=== PATIENT | female | born 1955 | race Caucasian/White ===

== ENCOUNTER 2021-06-19 17:35 | Emergency (ER) | payer MEDICARE, BC ==
[~2021-06-19] VITALS: Ht 167.7 cm; Wt 55.6 kg
--- NOTE | 2021-06-19 18:14 | ED General ---
General Chief Complaint: Trauma-Non Activation Stated Complaint: FALL; HEAD INJ Nursing Triage Note: Patient reports she was at the [employer] and accidentally stepped off a curb, hitting the left side of her head on a metal pole. She states she did not fall to the ground, states she was stunned for a moment but did not lose consciousness. She reports a headache and neck pain on the sides of her neck. History of Present Illness Date Seen by Provider: Jun 19, 2021 Time Seen by Provider: 18:11 Initial Comments Patient presenting to the emergency department for evaluation of head and neck pain status post injury when she excellently stepped off a curb and hit her left side of her parietal region against a metal pole. She does not think that she lost consciousness but she says she saw stars and contorted her head and has pain in her neck as well. She denies any other areas of pain including no chest abdomen back or extremity pain had no vision changes weakness numbness or ting ling. She denies taking blood thinners on a regular basis. She is in no acute distress with normal vital signs. Allergies and Home Medications Allergies Coded Allergies: Benzodiazepines (Verified Allergy, Unknown, 06/19/21) Quinolones (Verified Allergy, Unknown, 06/19/21) Patient Home Medication List Home Medication List Reviewed: Yes Review of Systems Review of Systems Constitutional: no symptoms reported EENTM: no symptoms reported Respiratory: no symptoms reported Cardiovascular: no symptoms reported Gastrointestinal: no symptoms reported Musculoskeletal: neck pain Skin: no symptoms reported Psychiatric/Neurological: Headache All Other Systems Reviewed Negative Unless Noted: Yes Physical Exam Vital Signs Vital Signs - First Documented 06/19/21 17:38 Temp 36.4 Pulse 79 Resp 16 B/P (MAP) 132/81 (98) Pulse Ox 99 O2 Delivery Room Air Capillary Refill : Less Than 3 Seconds Height, Weight, BMI Height: '" Weight: lbs. oz. kg; 19.00 BMI Method: General Appearance: No Apparent Distress, WD/WN HEENT: PERRL/EOMI Neck: Supple, Tender Lateral, Tender Midline Respiratory: No Respiratory Distress Cardiovascular: Regular Rate, Rhythm Gastrointestinal: Non Tender, Soft Back: No Vertebral Tenderness Extremity: Normal Capillary Refill Neurologic/Psychiatric: Alert, Oriented x3, No Motor/Sensory Deficits Skin: Warm/Dry Progress/Results/Core Measures Suspected Sepsis SIRS Temperature: Pulse: 79 Respiratory Rate: 16 Blood Pressure 132 /81 Mean: 98 Results/Orders My Orders Orders - GEOVANNY LEMA DO Ct Head/Cervical Spine Wo (06/19/21 ) Vital Signs/I&O 06/19/21 17:38 Temp 36.4 Pulse 79 Resp 16 B/P (MAP) 132/81 (98) Pulse Ox 99 O2 Delivery Room Air Capillary Refill : Less Than 3 Seconds Blood Pressure Mean: 98 Progress Note : Progress Note Patient with likely closed head injury without bleeding as well as cervical sprain but patient is quite concerned about her injury and says she does not want to wake up tomorrow with bleeding internally. After extensive discussion of benefits and risks of CT she wanted to proceed with a CT. she does not want anything for pain at this time. Imaging negative and repeat neurologic exam is normal and unchanged. Patient will be discharged in stable condition told to take tkfg-gpa-sdeabge medications for symptom relief to follow-up with her primary care provider later this week to ensure improvement and come back to the ED sooner with worsening pain neurologic changes or other general concerns. Patient aware and agreeable with plan and verbalized understanding of the above instructions. Departure Impression Primary Impression: CHI (closed head injury) Qualified Codes: S09.90XA - Unspecified injury of head, initial encounter Additional Impression: Acute cervical sprain Qualified Codes: S13.9XXA - Sprain of joints and ligaments of unspecified parts of neck, initial encounter Disposition: 01 HOME, SELF-CARE Condition: Stable Departure-Patient Inst. Referrals: DELTA HOPE MD (PCP/Family) Primary Care Physician Patient Instructions: Closed Head Injury (DC) GEOVANNY LEMA DO Jun 19, 2021 18:14
--- NOTE | 2021-06-19 18:41 | Diagnostic Imaging Report ---
PROCEDURE: CT head and CT cervical spine without contrast. TECHNIQUE: Multiple contiguous axial images were obtained through the brain and cervical spine without the use of intravenous contrast. Sagittal and coronal reformations through the cervical spine were then performed. Auto Exposure Controls were utilized during the CT exam to meet ALARA standards for radiation dose reduction. DATE: June 19, 2021. COMPARISON: None. INDICATION: 65-year-old female, hit head. Head and neck pain. FINDINGS: The ventricles and cerebral spinal fluid spaces are of normal size and configuration for the patient's age. There is no mass effect or midline shift. There is no acute intracranial hemorrhage. There is no abnormal extra-axial fluid collection. The visualized portions of the paranasal sinuses, mastoid air cells and middle ears are well aerated. There is no identified facet joint subluxation or dislocation. There are moderate left facet degenerative changes at C2-C3, C3-C4, and C4-C5. There is no asymmetric widening of the cervical disc spaces. There is no prominent prevertebral soft tissue swelling. There is mild disc height loss with posterior disc osteophyte complexes at C5-C6 and C6-C7. There is no identified acute fracture of the cervical spine. The visualized portions of the lung apices are clear. There are bilateral carotid vascular calcifications. IMPRESSION: 1. No identified acute intracranial abnormality. 2. No identified acute abnormality of the cervical spine. 3. Disc and facet degenerative changes of the cervical spine. Dictated by: Dictated on workstation # [id number]
[2021-06-19 19:11] VITALS: BP 128/72
== END 2021-06-19 19:02 | disposition home or self-care (01) ==
LOC: ER FS 17:38
DX: S09.90XA Unspecified injury of head, initial encounter (principal); S13.4XXA Sprain of ligaments of cervical spine, initial encounter; W18.43XA Slipping, tripping and stumbling without falling due to stepping from one level to another, initial encounter; W22.8XXA Striking against or struck by other objects, initial encounter; Y92.512 Supermarket, store or market as the place of occurrence of the external cause
CPT/HCPCS: 70450; 72125

== ENCOUNTER → 2021-09-03 | Outpatient (CLI) | payer MEDICARE ==
[2021-09-03 15:50] LABS: BUN/CREATININE RATIO 19; CALCIUM 9.6 MG/DL (8.5-10.1); CARBON DIOXIDE 23 MMOL/L (21-32); CHLORIDE 106 MMOL/L (98-107); CREATININE SERUM 0.75 MG/DL (0.60-1.30); GFR ESTIMATED 77; GLUCOSE 96 MG/DL (70-105); POTASSIUM 3.9 MMOL/L (3.6-5.0); SODIUM 142 MMOL/L (135-145)
== END ==
LOC: LAB FS 14:42
PROVIDERS: ATTEND Family Medicine
DX: R00.2 Palpitations (principal); R07.9 Chest pain, unspecified
CPT/HCPCS: 36415; 80048; 84443; 84484

== ENCOUNTER → 2021-10-16 | Outpatient (CLI) | payer MEDICARE, BC ==
[2021-10-16 12:47] LABS: HEMATOCRIT 44 % (35-52); HEMOGLOBIN 14.4 g/dL (11.5-16.0); MEAN CORPUSCULAR HEMOGLOBIN 31 pg (25-34); MEAN CORPUSCULAR HGB CONC 33 g/dL (32-36); MEAN CORPUSCULAR VOLUME 96 fL (80-99); MEAN PLATELET VOLUME 9.2 fL (9.0-12.2); PLATELET COUNT 300 10^3/uL (130-400); WHITE BLOOD COUNT 4.8 10^3/uL (4.3-11.0)
[2021-10-16 12:48] LABS: BASOPHILS # (AUTO) 0.1 10^3/uL (0.0-0.1); BASOPHILS % (AUTO) 1 % (0-10); EOSINOPHILS # (AUTO) 0.1 10^3/uL (0.0-0.3); EOSINOPHILS % (AUTO) 3 % (0-10); LYMPHOCYTES # (AUTO) 1.4 X 10^3 (1.0-4.0); LYMPHOCYTES % (AUTO) 29 % (12-44); MONOCYTES # (AUTO) 0.3 X 10^3 (0.0-1.0); MONOCYTES % (AUTO) 7 % (0-12); NEUTROPHILS # (AUTO) 2.9 X 10^3 (1.8-7.8); NEUTROPHILS % (AUTO) 61 % (42-75)
== END ==
LOC: LAB FS 12:07
PROVIDERS: ATTEND Family Medicine
DX: R53.82 Chronic fatigue, unspecified (principal); R79.89 Other specified abnormal findings of blood chemistry
CPT/HCPCS: 36415; 82607; 85025

== ENCOUNTER → 2021-11-09 | Outpatient (CLI) | payer MEDICARE, BC | LOC: FS 16:32 | PROVIDERS: ATTEND Family Medicine | DX: R10.9 Unspecified abdominal pain (principal) | CPT/HCPCS: 87088 ==

== ENCOUNTER → 2021-12-24 | Outpatient (CLI) | payer MEDICARE, BC | LOC: LABNPT 15:29 | PROVIDERS: ATTEND Registered Nurse Emergency | DX: R50.9 Fever, unspecified (principal); Z20.822 Contact with and (suspected) exposure to COVID-19 | CPT/HCPCS: 87635 ==

== ENCOUNTER → 2022-05-14 | Outpatient (CLI) | payer MEDICARE, BC ==
[2022-05-14 14:49] LABS: CLARITY,URINE CLEAR; COLOR,URINE PALE YELLOW; PH,URINE 6.5 (5-9)
[2022-05-14 14:50] LABS: BACTERIA,URINE NEGATIVE /HPF; BILIRUBIN,URINE NEGATIVE (NEGATIVE); GLUCOSE, URINE (UA) NEGATIVE (NEGATIVE); KETONES,URINE NEGATIVE (NEGATIVE); LEUKOCYTE ESTERASE ,URINE NEGATIVE (NEGATIVE); NITRITE,URINE NEGATIVE (NEGATIVE); PROTEIN,URINE NEGATIVE (NEGATIVE); RBC,URINE RARE /HPF; SQUAMOUS EPITHELIAL CELL,UR RARE /HPF
== END ==
LOC: LAB FS 14:20
PROVIDERS: ATTEND Family Medicine
DX: R39.15 Urgency of urination (principal)
CPT/HCPCS: 81000

== ENCOUNTER 2022-07-13 10:09 | Emergency (ER) | payer MEDICARE ==
[~2022-07-13] VITALS: Ht 167.7 cm; Wt 57.3 kg
[2022-07-13 10:17] VITALS: BP 132/91
--- NOTE | 2022-07-13 10:46 | Diagnostic Imaging Report ---
PROCEDURE: CT head without contrast. TECHNIQUE: Multiple contiguous axial images were obtained through the brain without the use of intravenous contrast. Auto Exposure Controls were utilized during the CT exam to meet ALARA standards for radiation dose reduction. INDICATION: Head injury. Compared with head CT performed 06/19/2021. Head: There is no intracranial hemorrhage and there are no acute or abnormal extra-axial fluid collections. Cerebral cortical volume stable and normal. Ventricular system nondilated and nondisplaced. The basilar cisterns are patent. There is no loss of the normal tapia-white matter cortical differentiations. Orbits, sinuses and calvarium nonacute. There is no hemo-sinus. There is no pneumocephalus. IMPRESSION: Stable unremarkable noncontrasted CT head. Dictated by: Dictated on workstation # [id number]
--- NOTE | 2022-07-13 11:08 | ED Head Injury ---
General Chief Complaint: Head/Cervical Problems Stated Complaint: HEAD INJ Nursing Triage Note: Patient states she walked into a part of a shed at her home approximately 20 minutes prior to arrival to the ED. She states "everything went black for a minute" but states she did not lose consciousness. She states her head aches she feels woozy. Source: patient Exam Limitations: no limitations History of Present Illness Date Seen by Provider: Jul 13, 2022 Time Seen by Provider: 10:17 Initial Comments 66-year-old female patient without history of medical problems states she was gardening this morning and walked to a shed and accidentally hit right side of her head against a gate on her shed and was dazed for 3 to 4 minutes without loss of consciousness, focal neuro deficit, nausea and vomiting. Patient rated her pain 10/10 and states she was able to drive to hospital by herself. Patient is up-to-date with her tetanus immunization. Allergies and Home Medications Allergies Coded Allergies: Benzodiazepines (Verified Allergy, Unknown, 06/19/21) Quinolones (Verified Allergy, Unknown, 06/19/21) Patient Home Medication List Home Medication List Reviewed: Yes Review of Systems Review of Systems Constitutional: no symptoms reported Eyes: No Symptoms Reported Ears, Nose, Mouth, Throat: no symptoms reported Respiratory: no symptoms reported Cardiovascular: no symptoms reported Gastrointestinal: no symptoms reported Genitourinary: no symptoms reported Musculoskeletal: no symptoms reported Skin: no symptoms reported Psychiatric/Neurological: See HPI All Other Systems Reviewed Negative Unless Noted: Yes Past Nndepat-Arrlnq-Dcypex Hx Patient Social History Tobacco Use?: No Substance use?: No Alcohol Use?: No Physical Exam Vital Signs Vital Signs - First Documented 07/13/22 10:17 Temp 36.4 Pulse 75 Resp 16 B/P (MAP) 132/91 (105) Pulse Ox 97 O2 Delivery Room Air Capillary Refill : Less Than 3 Seconds Height, Weight, BMI Height: '" Weight: lbs. oz. kg; 20.00 BMI Method: General Appearance: WD/WN, no apparent distress HEENT: normal ENT inspection, TMs normal, pharynx normal Neck: non-tender, full range of motion Cardiovascular: normal peripheral pulses, regular rate, rhythm, no edema, no gallop, no JVD Respiratory: chest non-tender, lungs clear, normal breath sounds, no respiratory distress, no accessory muscle use Gastrointestinal: normal bowel sounds, non tender, soft Back: normal inspection, no CVA tenderness Extremities: normal range of motion, non-tender, normal inspection, no pedal ed milady Psychiatric: alert, oriented x 3 Crainal Nerves: normal hearing, normal speech, PERRL Motor/Sensory: no motor deficit, no sensory deficit Right forehead small area of contusion and a dent area of frontal bone with mild tenderness Progress/Results/Core Measures Results/Orders My Orders Orders - LATASHA REYNOSO MD Ct Head Wo (07/13/22 10:31) Vital Signs/I&O 07/13/22 10:17 Temp 36.4 Pulse 75 Resp 16 B/P (MAP) 132/91 (105) Pulse Ox 97 O2 Delivery Room Air Blood Pressure Mean: 105 Progress Progress Note : Progress Note Evaluation of patient in ER showed 66-year-old female patient with head injury without loss of consciousness. Patient had contusion of forehead and unremarkable CT head. Patient did not want to have pain medication in ER. Patient informed about test results and plan of care and decrease of activity today. CT Read Date: Jul 13, 2022 CT Results/Progress Notes CT head without contrast interpreted by radiologist and reviewed by me and showed: NAME: LISA CAGE [facility] REC#: [id number] PT STATUS: REG ER : 1955 PHYSICIAN: LATASHA REYNOSO MD ADMIT DATE: 07/13/22/ER FS Date of Exam:07/13/22 CT HEAD WO PROCEDURE: CT head without contrast. TECHNIQUE: Multiple contiguous axial images were obtained through the brain without the use of intravenous contrast. Auto Exposure Controls were utilized during the CT exam to meet ALARA standards for radiation dose reduction. INDICATION: Head injury. Compared with head CT performed 06/19/2021. Head: There is no intracranial hemorrhage and there are no acute or abnormal extra-axial fluid collections. Cerebral cortical volume stable and normal. Ventricular system nondilated and nondisplaced. The basilar cisterns are patent. There is no loss of the normal tapia-white matter cortical differentiations. Orbits, sinuses and calvarium nonacute. There is no hemo-sinus. There is no pneumocephalus. IMPRESSION: Stable unremarkable noncontrasted CT head. Dictated on workstation # [id number] Dict: 07/13/22 1043 Trans: 07/13/[address] [facility] [id number] Interpreted by: TC SANCHEZ Electronically signed by: Departure Impression Primary Impression: Head injury Qualified Codes: S09.90XA - Unspecified injury of head, initial encounter Additional Impression: Forehead contusion Qualified Codes: S00.83XD - Contusion of other part of head, subsequent encounter Disposition: 01 HOME, SELF-CARE Condition: Stable Departure-Patient Inst. Decision time for Depature: 11:11 Referrals: DELTA HOPE MD (PCP) Primary Care Physician Patient Instructions: Closed Head Injury, Minor Contusion ED Add. Discharge Instructions: Apply ice on your forehead May take Tylenol or ibuprofen as needed for pain Follow-up with your primary care physician or return to ER as needed All discharge instructions reviewed with patient and/or family. Voiced understanding. LATASHA REYNOSO MD Jul 13, 2022 11:08
== END 2022-07-13 11:21 | disposition home or self-care (01) ==
LOC: EDUNIT# 10:09 → ER FS 10:10
DX: S09.90XA Unspecified injury of head, initial encounter (principal); S00.83XA Contusion of other part of head, initial encounter; W22.8XXA Striking against or struck by other objects, initial encounter; Y93.H2 Activity, gardening and landscaping; Y92.89 Other specified places as the place of occurrence of the external cause
CPT/HCPCS: 70450

== ENCOUNTER → 2022-07-25 | Outpatient (CLI) | payer MEDICARE, OTHER | LOC: ORTHO 14:00 | PROVIDERS: ATTEND Orthopaedic Surgery | DX: M65.341 Trigger finger, right ring finger (principal) ==

== ENCOUNTER 2022-08-22 12:37 | Emergency (ER) | payer MEDICARE, OTHER ==
--- NOTE | 2022-08-22 13:18 | ED Head Injury ---
General Chief Complaint: Head/Cervical Problems Stated Complaint: HEAD INJ Nursing Triage Note: PT REPORTS A WHEELCHAIR ARM FELL AND HIT HER IN THE HEAD WHILE SHE WAS TRYING TO UNTANGLE WHEELCHAIRS. NO LOC. SHE REPORTS HER LEFT UPPER HEAD IS SORE AND SHE HAS A HEADACHE AND NAUSEATED TODAY. History of Present Illness Date Seen by Provider: Aug 22, 2022 Time Seen by Provider: 13:00 Initial Comments 67-year-old female is here with complaints of hitting her head on the IV pole attached to a wheelchair yesterday. Patient has a mild headache and started feeling a little bit nauseous today. Patient is here to rule out any head injury. Denies LOC, fall, vomiting, dizziness, blurry vision. Allergies and Home Medications Allergies Coded Allergies: Benzodiazepines (Verified Allergy, Unknown, 06/19/21) Quinolones (Verified Allergy, Unknown, 06/19/21) Patient Home Medication List Home Medication List Reviewed: Yes Review of Systems Review of Systems Constitutional: no symptoms reported Eyes: No Symptoms Reported Ears, Nose, Mouth, Throat: no symptoms reported Respiratory: no symptoms reported Cardiovascular: no symptoms reported Gastrointestinal: no symptoms reported Genitourinary: no symptoms reported Musculoskeletal: no symptoms reported Skin: no symptoms reported Psychiatric/Neurological: Headache Endocrine: No Symptoms Reported Hematologic/Lymphatic: No Symptoms Reported Past Lxofggf-Jpovrj-Ujbmux Hx Patient Social History Tobacco Use?: No Use of E-Cig and/or Vaping dev: No Substance use?: No Alcohol Use?: No Pt feels they are or have been: No Immunizations Up To Date First/Initial COVID19 Vaccinat: 2020 Second COVID19 Vaccination Denny: 2020 COVID19 Vaccine [employer]: MANDY Physical Exam Vital Signs Vital Signs - First Documented 08/22/22 13:04 Temp 36.4 Pulse 86 Resp 16 B/P (MAP) 125/83 (97) Pulse Ox 98 Capillary Refill : Less Than 3 Seconds Height, Weight, BMI Height: '" Weight: lbs. oz. kg; 20.00 BMI Method: General Appearance: WD/WN, no apparent distress HEENT: PERRL/EOMI, TMs normal Neck: non-tender, full range of motion, supple, normal inspection Cardiovascular: regular rate, rhythm Back: normal inspection, no vertebral tenderness Psychiatric: alert, oriented x 3 Crainal Nerves: normal hearing, normal speech, PERRL Coordination/Gait: normal gait Motor/Sensory: no motor deficit, no sensory deficit Skin: normal color [place] Coma Score Best Eye Response: (4) Open Spontaneously Best Verbal Response: (5) Oriented Best Motor Response: (6) Obeys Commands Mer Total: 15 Progress/Results/Core Measures Results/Orders My Orders Orders - RACHAEL LANE MD Ct Head Wo (08/22/22 13:18) Vital Signs/I&O 08/22/22 08/22/22 13:04 13:49 Temp 36.4 36.4 Pulse 86 86 Resp 16 16 B/P (MAP) 125/83 (97) 125/83 Pulse Ox 98 98 Blood Pressure Mean: 97 Progress Progress Note : Progress Note 1. MINOR HEAD INJURY : - CT HEAD: normal - Follow up with PCP in 7 days - Precautionary concussion instructions included in discharge papers -The patient was seen in the ED, and treated appropriately to presentation at a specific point in time. Patient is informed that there is a possibility that disease and illness can evolve and change in acuity rapidly or slowly after patient is discharged from the ER. Precautionary advice given to the patient for immediate return to ER if symptoms worsen or do not resolve, and to seek emergency care sooner rather than later. Pt also advised on the importance of PCP follow up and compliance with management and follow up plan with PCP and/or specialist, as this is part of the management plan. Pt verbally expressed understanding. Diagnostic Imaging Diagonstic Imaging: CT Plain Films/CT/US/NM/MRI: head Comments [facility] [place] NAME: LISA CAGE [facility] REC#: [id number] PT STATUS: REG ER : 1955 PHYSICIAN: RACHAEL LANE MD ADMIT DATE: 08/22/22/ER FS Draft Date of Exam:08/22/22 CT HEAD WO PROCEDURE: CT head without contrast. TECHNIQUE: Multiple contiguous axial images were obtained through the brain without the use of intravenous contrast. Auto Exposure Controls were utilized during the CT exam to meet ALARA standards for radiation dose reduction. INDICATION: Fall with head injury. Comparison is made with prior head CT from 07/13/2022. Ventricles and sulci are within normal limits. No sulcal effacement or midline shift is identified. No acute intra-axial or extra-axial hemorrhage is detected. Cisterns are patent. Visualized paranasal sinuses are clear. IMPRESSION: No acute intracranial process is detected. Dictated on workstation # [id number] Dict: 08/22/22 1340 Trans: 08/22/22 1348 [facility] [id number] Interpreted by: JALYN BERNARDO MD Electronically signed by: Departure Impression Primary Impression: Minor head injury without loss of consciousness Disposition: HOME, SELF-CARE Condition: Stable Departure-Patient Inst. Referrals: DELTA HOPE MD (PCP) Primary Care Physician Patient Instructions: Minor Head Injury (DC), Concussion, Adult (DC) Add. Discharge Instructions: - Return to ER if symptoms worsen - Precautionary concussion instructions included in discharge papers All discharge instructions reviewed with patient and/or family. Voiced understanding. RACHAEL LANE MD Aug 22, 2022 13:18
--- NOTE | 2022-08-22 13:48 | Diagnostic Imaging Report ---
PROCEDURE: CT head without contrast. TECHNIQUE: Multiple contiguous axial images were obtained through the brain without the use of intravenous contrast. Auto Exposure Controls were utilized during the CT exam to meet ALARA standards for radiation dose reduction. INDICATION: Fall with head injury. Comparison is made with prior head CT from 07/13/2022. Ventricles and sulci are within normal limits. No sulcal effacement or midline shift is identified. No acute intra-axial or extra-axial hemorrhage is detected. Cisterns are patent. Visualized paranasal sinuses are clear. IMPRESSION: No acute intracranial process is detected. Dictated by: Dictated on workstation # [id number]
[2022-08-22 13:49] VITALS: BP 125/83
== END 2022-08-22 14:51 | disposition home or self-care (01) ==
LOC: EDUNIT# 12:37 → ER FS 12:39
DX: S09.90XA Unspecified injury of head, initial encounter (principal); W22.8XXA Striking against or struck by other objects, initial encounter
CPT/HCPCS: 70450

== ENCOUNTER → 2022-09-27 | Outpatient (CLI) | payer MEDICARE, OTHER | LOC: FS 16:02 | PROVIDERS: ATTEND Registered Nurse Emergency | DX: R30.0 Dysuria (principal); R52 Pain, unspecified; R53.83 Other fatigue; Z20.822 Contact with and (suspected) exposure to COVID-19 | CPT/HCPCS: 87636 ==

== ENCOUNTER → 2022-09-30 | Outpatient (CLI) | payer MEDICARE, OTHER | LOC: LABNPT 14:42 | PROVIDERS: ATTEND Registered Nurse Emergency | DX: R30.0 Dysuria (principal); R52 Pain, unspecified; R53.83 Other fatigue | CPT/HCPCS: 87088 ==

== ENCOUNTER → 2023-03-21 | Outpatient (CLI) | payer MEDICARE, OTHER ==
[~2023-03-21] MED LIST: CEFD300C3 PO; ONDA4TAB11 PO
--- NOTE | 2023-03-21 16:46 | Diagnostic Imaging Report ---
EXAMINATION: Abdomen 1 view HISTORY: Nausea COMPARISON: None available. FINDINGS: Embolization coils project over the upper abdomen. No dilated bowel or free air. IMPRESSION: 1. Normal bowel gas pattern. Dictated by: Dictated on workstation # [id number]
== END ==
LOC: RAD FS 12:17
PROVIDERS: ATTEND Family Medicine
DX: R10.9 Unspecified abdominal pain (principal); R11.0 Nausea
CPT/HCPCS: 74018

== ENCOUNTER 2023-03-23 23:01 | Emergency (ER) | payer MEDICARE, OTHER ==
[~2023-03-23] VITALS: Ht 167 cm; Wt 56.1 kg
[2023-03-23 23:11] VITALS: BP 160/80
[2023-03-23] MEDS ORDERED: NS IV 1000 ML 1,000 ML IV STA (23:19)
--- NOTE | 2023-03-23 23:24 | ED GI ---
General Chief Complaint: Abdominal/GI Problems Stated Complaint: FEVER Nursing Triage Note: patient states she has been running a fever 102 last couple of days. states treated with Tylenol prior to arrival. patient verbalized she has been constipated, taken OTC med to help with no relief, states is nauseated. patient states Friday she thinks she had the flu and has taken OTC meds for treatment. 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 She had diarrhea a couple days ago as well that was nonbloody. Now she is more constipated, but is passing flatus. During this illness, she went to [id number] when she was working, and had a CT scan of her abdomen and pelvis which was reportedly normal. She had a KUB a couple days ago which was also reportedly normal. She is reporting a productive cough with green sputum. Took Tylenol prior to arrival. Is otherwise denying any chest pain, shortness of breath, abdominal pain, has not vomited in 2 days, no weakness, no numbness, no rash, or any other concerns. Allergies and Home Medications Allergies Coded Allergies: Benzodiazepines (Verified Allergy, Unknown, 06/19/21) Quinolones (Verified Allergy, Unknown, 06/19/21) Patient Home Medication List Home Medication List Reviewed: Yes Cefdinir (Cefdinir) 300 Mg Capsule, 300 MG PO BID Prescribed by: JOY GRANDA on 03/24/23 0036 Review of Systems Review of Systems Constitutional: fever EENTM: No Symptoms Reported Respiratory: No Symptoms Reported Cardiovascular: No Symptoms Reported Gastrointestinal: See HPI Genitourinary: No Symptoms Reported Musculoskeletal: no symptoms reported Skin: no symptoms reported Psychiatric/Neurological: No Symptoms Reported Endocrine: No Symptoms Reported Hematologic/Lymphatic: No Symptoms Reported All Other Systems Reviewed Negative Unless Noted: Yes Past Zrvwgtx-Wudsay-Dbxglc Hx Patient Social History Tobacco Use?: No Immunizations Up To Date First/Initial COVID19 Vaccinat: 2020 Second COVID19 Vaccination Denny: 2020 Third COVID19 Vaccination Date: 2020 Past Medical History Surgeries: Yes Gallbladder Physical Exam Vital Signs Vital Signs - First Documented 03/23/23 23:11 Temp 37.1 Pulse 120 Resp 18 B/P (MAP) 160/80 (106) Pulse Ox 98 O2 Delivery Room Air Capillary Refill : Less Than 3 Seconds Height/Weight/BMI Height: '" Weight: lbs. oz. kg; 20.00 BMI Method: General Appearance: WD/WN, other (Anxious) HEENT: PERRL/EOMI, normal ENT inspection, pharynx normal Neck: non-tender, full range of motion, supple, normal inspection Respiratory: chest non-tender, lungs clear, normal breath sounds, no respiratory distress, no accessory muscle use Cardiovascular: no edema, no murmur, tachycardia Gastrointestinal: normal bowel sounds, non tender, soft; No distended, No guarding, No rebound Extremities: normal range of motion, non-tender, normal inspection, no pedal edema, no calf tenderness, normal capillary refill Back: normal inspection, no CVA tenderness Neurologic/Psychiatric: no motor/sensory deficits, alert, normal mood/affect Skin: normal color, warm/dry Progress/Results/Core Measures Results/Orders Lab Results Laboratory Tests Test 03/23/23 23:27 Range/Units White Blood Count 21.6 H 4.3-11.0 10^3/uL Red Blood Count 4.31 3.80-5.11 10^6/uL Hemoglobin 13.4 11.5-16.0 g/dL Hematocrit 40 35-52 % Mean Corpuscular Volume 93 80-99 fL Mean Corpuscular Hemoglobin 31 25-34 pg Mean Corpuscular Hemoglobin Concent 33 32-36 g/dL Red Cell Distribution Width 13.2 10.0-14.5 % Platelet Count 314 130-400 10^3/uL Mean Platelet Volume 10.3 9.0-12.2 fL Immature Granulocyte % (Auto) 1 % Neutrophils (%) (Auto) 87 H 42-75 % Lymphocytes (%) (Auto) 6 L 12-44 % Monocytes (%) (Auto) 5 0-12 % Eosinophils (%) (Auto) 1 0-10 % Basophils (%) (Auto) 0 0-10 % Neutrophils # (Auto) 18.7 H 1.8-7.8 10^3/uL Lymphocytes # (Auto) 1.3 1.0-4.0 10^3/uL Monocytes # (Auto) 1.1 H 0.0-1.0 10^3/uL Eosinophils # (Auto) 0.2 0.0-0.3 10^3/uL Basophils # (Auto) 0.1 0.0-0.1 10^3/uL Immature Granulocyte # (Auto) 0.1 0.0-0.1 10^3/uL Neutrophils % (Manual) 81 % Lymphocytes % (Manual) 5 % Monocytes % (Manual) 1 % Metamyelocytes % 1 % Band Neutrophils 11 % Atypical Lymphocytes 1 % Toxic Granulation 2+ Platelet Estimate NORMAL Blood Morphology Comment NORMAL Sodium Level 136 135-145 MMOL/L Potassium Level 3.6 3.6-5.0 MMOL/L Chloride Level 102 98-107 MMOL/L Carbon Dioxide Level 20 L 21-32 MMOL/L Anion Gap 14 5-14 MMOL/L Blood Urea Nitrogen 10 7-18 MG/DL Creatinine 0.97 0.60-1.30 MG/DL Estimat Glomerular Filtration Rate 64 BUN/Creatinine Ratio 10 Glucose Level 115 H 70-105 MG/DL Calcium Level 9.4 8.5-10.1 MG/DL Corrected Calcium 9.3 8.5-10.1 MG/DL Magnesium Level 2.1 1.6-2.4 MG/DL Total Bilirubin 0.4 0.1-1.0 MG/DL Aspartate Amino Transf (AST/SGOT) 19 5-34 U/L Alanine Aminotransferase (ALT/SGPT) 15 0-55 U/L Alkaline Phosphatase 105 40-136 U/L C-Reactive Protein 4.29 H <0.50 MG/DL Total Protein 7.8 6.4-8.2 GM/DL Albumin 4.1 3.2-4.5 GM/DL Lipase 19 8-78 U/L Influenza Type A (RT-PCR) Not Detected Not Detecte Influenza Type B (RT-PCR) Not Detected Not Detecte SARS-CoV-2 RNA (RT-PCR) Not Detected Not Detecte My Orders Orders - JOY GRANDA MD Cbc With Automated Diff (03/23/23 23:19) Comprehensive Metabolic Panel (03/23/23 23:19) Lipase (03/23/23 23:19) Magnesium (03/23/23 23:19) Influenza A And B By Pcr (03/23/23 23:19) Crp Fs (03/23/23 23:19) Covid 19 Inhouse Test (03/23/23 23:19) Ns Iv 1000 Ml (Sodium Chloride 0.9%) (03/23/23 23:19) Famotidine Tablet (Pepcid Tablet) (03/23/23 23:30) Antacid Suspension (Mylanta Suspension (03/23/23 23:30) Ondansetron Injection (Zofran Injectio (03/23/23 23:30) Chest Pa/Lat (2 View) (03/23/23 23:19) Promethazine Injection (Phenergan Injec (03/23/23 23:45) Manual Differential (03/23/23 23:27) Ceftriaxone Iv/Im (Rocephin Iv/Im) (03/24/23 00:45) Medications Given in ED Current Medications Medications Dose Ordered Sig/Bert Route Start Time Stop Time Status Last Admin Dose Admin Ondansetron HCl 4 mg ONCE ONCE IVP 03/23/23 23:30 03/23/23 23:31 DC 03/23/23 23:26 4 MG Promethazine HCl 12.5 mg ONCE ONCE IVP 03/23/23 23:45 03/23/23 23:46 DC 03/23/23 23:38 12.5 MG Vital Signs/I&O 03/23/23 23:11 Temp 37.1 Pulse 120 Resp 18 B/P (MAP) 160/80 (106) Pulse Ox 98 O2 Delivery Room Air Blood Pressure Mean: 106 Progress Progress Note : Progress Note 67-year-old female with above history coming in due to nausea, fever, diarrhea initially, now constipation. ABCs were intact and vitals were stable on presentation other than she was mildly tachycardic which came down with rest. She states her blood pressure is normally 90/60, elevated here while she is visibly very anxious. She states she is taking care of her mother who is actively dying this is causing her a lot of distress. Physical exam reassuring including a soft and nontender abdomen, she is nontoxic, walking around rapidly. An IV was placed and basic labs were obtained including inflammatory markers. She was also given a bolus of IV fluids and IV Zofran followed by IV Phenergan. Her white blood cell count was quite elevated around 21,000. I discussed this with the patient, she confirms that she had a couple steroid injections just within the past couple of days due to her doing a large amount of physical therapy and having pain associated with it. The elevated white blood count would be explained by the steroid use. Unlikely to be a significant abdominal infection given she had a recent CT abdomen pelvis which was normal, normal KUB 2 days ago as an outpatient that I personally reviewed, and has a soft and nontender abdomen today. She is not having any urinary symptoms such as dysuria or urinary frequency, urinalysis therefore not ordered. Electrolytes unremarkable, lipase unremarkable, CRP elevated which could point toward infection. Repeat abdominal exam reassuring. Unclear if she is dealing with a viral vs bacterial enteritis. Discussed antibiotic use with her, and how we could try a course of augmentin vs flagyl. She states she only tolerates ceftriaxone. She was given a dose here followed by a course of cefdinir prescription. Does not show any signs of obstruction clinically. I believe she stable for discharge with outpatient follow-up. She was sent home with strict return precautions. Departure Impression Primary Impression: Nausea alone Additional Impression: Constipation Qualified Codes: K59.09 - Other constipation Disposition: HOME, SELF-CARE Condition: Stable Departure-Patient Inst. Decision time for Depature: 12:25 Referrals: DELTA HOPE MD (PCP/Family) Primary Care Physician Patient Instructions: Nausea and Vomiting, Adult ED, Constipation, Adult ED Add. Discharge Instructions: We are not seeing any evidence of serious infection. It is possible this is bacterial in nature, so you will be on antibiotics for the next week. I would do normal things for the constipation such as Metamucil with extra water. If that does not work and you are having pain associated with it, you can try Dulcolax suppository which you can buy [id number]. Please follow-up with your regular doctor if constipation continues to be an issue as you may need a referral to a GI specialist. In regards to her nausea, continue to take the Zofran and Phenergan as needed. Give this illness some time to pass naturally. Scripts Ondansetron (Ondansetron Odt) 4 Mg Tab.rapdis 4 MG PO Q6H PRN for NAUSEA/VOMITING for 5 Days, #20 TAB 0 Refills Prov: JOY GRANDA MD 03/24/23 Cefdinir (Cefdinir) 300 Mg Capsule 300 MG PO BID for 7 Days, #14 CAP 0 Refills Prov: JOY GRANDA MD 03/24/23 Work/School Note: Work Release Form Date Seen in the Emergency Department: March 24, 2023 Return to Work: March 25, 2023 Restrictions: No Restrictions JOY GRADNA MD Mar 23, 2023 23:24
[2023-03-23] MEDS: FAMOTIDINE 20 MG (PEPCID) TABLET PO ONE (23:26)
[2023-03-23] MEDS: ANTACID SUSP 30 ML UDC (MYLANTA) PO ONE (23:26)
[2023-03-23] MEDS ORDERED: ONDANSETRON 4 MG/2 ML (SDV) Z0FRAN IVP ONE (23:30)
[2023-03-23 23:35] LABS: BASOPHILS # (AUTO) 0.1 10^3/uL (0.0-0.1); BASOPHILS % (AUTO) 0 % (0-10); EOSINOPHILS # (AUTO) 0.2 10^3/uL (0.0-0.3); EOSINOPHILS % (AUTO) 1 % (0-10); HEMATOCRIT 40 % (35-52); HEMOGLOBIN 13.4 g/dL (11.5-16.0); LYMPHOCYTES # (AUTO) 1.3 10^3/uL (1.0-4.0); LYMPHOCYTES % (AUTO) 6 % (12-44); MEAN CORPUSCULAR HEMOGLOBIN 31 pg (25-34); MEAN CORPUSCULAR HGB CONC 33 g/dL (32-36); MEAN CORPUSCULAR VOLUME 93 fL (80-99); MEAN PLATELET VOLUME 10.3 fL (9.0-12.2); MONOCYTES # (AUTO) 1.1 10^3/uL (0.0-1.0); MONOCYTES % (AUTO) 5 % (0-12); NEUTROPHILS # (AUTO) 18.7 10^3/uL (1.8-7.8); NEUTROPHILS % (AUTO) 87 % (42-75); PLATELET COUNT 314 10^3/uL (130-400); WHITE BLOOD COUNT 21.6 10^3/uL (4.3-11.0)
[2023-03-23] MEDS ORDERED: PROMETHAZINE INJ 25 MG/ML (PHENERGAN) AMP IVP ONE (23:45)
[2023-03-24 00:03] LABS: ATYPICAL LYMPHOCYTES 1 %; BAND NEUTROPHILS 11 %; LYMPHOCYTES % (MANUAL) 5 %; METAMYELOCYTES % 1 %; MONOCYTES % (MANUAL) 1 %; NEUTROPHILS % (MANUAL) 81 %; PLATELET ESTIMATE NORMAL; RBC MORPH NORMAL; TOXIC GRANULATION/VACUOLAZATIO 2+
[2023-03-24 00:05] LABS: CREATININE SERUM 0.97 MG/DL (0.60-1.30); POTASSIUM 3.6 MMOL/L (3.6-5.0)
[2023-03-24 00:06] LABS: ALBUMIN 4.1 GM/DL (3.2-4.5); BILIRUBIN,TOTAL 0.4 MG/DL (0.1-1.0); CALCIUM 9.4 MG/DL (8.5-10.1); MAGNESIUM 2.1 MG/DL (1.6-2.4); TOTAL PROTEIN 7.8 GM/DL (6.4-8.2)
[2023-03-24] MEDS: FAMOTIDINE 20 MG (PEPCID) TABLET PO ONE (00:15)
[2023-03-24] MEDS ORDERED: CEFD300C3 PO (00:36)
[2023-03-24] MEDS ORDERED: cefTRIAXone IV/IM 1,000 MG in NS (IVPB) 50 ML IV ONE (00:45)
[2023-03-24] MEDS ORDERED: ONDA4TAB11 PO (00:52)
[2023-03-24] MEDS: ANTACID SUSP 30 ML UDC (MYLANTA) PO ONE (00:55)
--- NOTE | 2023-03-24 06:59 | Diagnostic Imaging Report ---
INDICATION: Cough and fever. Comparison made with prior examination of 03/02/2022. FINDINGS: The heart size, mediastinal configuration, and pulmonary vascularity are within normal limits. There is no pleural effusion, pneumothorax, or pneumonia. The osseous structures are unremarkable. IMPRESSION: No acute cardiopulmonary abnormality. Dictated by: Dictated on workstation # [id number]
== END 2023-03-24 00:55 | disposition home or self-care (01) ==
LOC: EDUNIT# 23:01 → ER FS 23:03
DX: K59.00 Constipation, unspecified (principal); Z88.1 Allergy status to other antibiotic agents; Z20.822 Contact with and (suspected) exposure to COVID-19
CPT/HCPCS: 36415; 71046; 80053; 83690; 83735; 85007; 85027; 86141; 87636